=== PATIENT | female | born 1940 | race Caucasian/White ===

== ENCOUNTER 2018-07-04 08:55 | Outpatient (CLI) | payer MEDICARE ==
--- NOTE | 2018-07-04 10:35 | CT ---
CT ABDOMEN WITHOUT CONTRAST: CT PELVIS WITHOUT CONTRAST: HISTORY: Left lower quadrant pain x6 months. Previous colonoscopy, hysterectomy, and cholecystectomy, Previo us back surgery. COMPARISON: 12/25/2016 FINDINGS: ABDOMEN: The visualized lung bases are clear. Mild dilatation of the descending thoracic aorta. At the level of the diaphragmatic jolly, the aorta measures 3.3 x 3.1 cm. There is evidence of previous surgery involving the aorta, with what appears to be an endovascular stent in the aorta and both common iliac arteries. Additional stent is noted in the left common iliac artery. No retroperitoneal mass, lymphadenopathy, or hematoma. Limited evaluation of the solid organs due to lack of intravenous contrast administration. Hypodensi ty in the liver, near the hepatic dome, is too small to characterize. No abnormal masses in the live r. The spleen, pancreas, and bilateral adrenal glands are unremarkable. No gastrohepatic, retrocrural, or periportal lymphadenopathy. A 1.6 cm hypodensity emanating from the posterior mid right kidney with an attenuation coefficient of 15 Hounsfield units. A 1.2 cm hypodense lesion emanating from the lateral upper pole of the right k idney with an attenuation coefficient of 19 Hounsfield units. Both lesions are noted on the previous CT. Bilaterally, no obstructive uropathy. No mesenteric mass, lymphadenopathy, free air, or free fluid. Limited evaluation of the alimentary canal due to lack of oral contrast administration. No evidence of bowel obstruction. The ileocecal junction is normal. Scattered fecal material in a nondistended, nondilated colon. No evidence of obstruction. PELVIS: No mass, lymphadenopathy, free air, or free fluid. Unremarkable urinary bladder. There is stable post surgical change involving the lumbar spine and left SI joint. No perihardware l ucency. Hysterectomy changes are noted. IMPRESSION: No acute abnormality in the abdomen or pelvis. POS: [facility]
== END 2018-07-04 08:56 | disposition home or self-care (01) ==
LOC: CT 08:55
PROVIDERS: ATTEND Internal Medicine Geriatric Medicine
DX: R10.32 Left lower quadrant pain (principal)
CPT/HCPCS: 74176

== ENCOUNTER 2019-11-25 12:19 | Outpatient (CLI) | payer MEDICARE ==
--- NOTE | 2019-11-25 12:39 | RAD ---
EXAM: 3 views of the lumbosacral spine HISTORY: Low back pain and right-sided sciatica COMPARISON: None FINDINGS: 3 views of the lumbosacral spine the patient is status post fusion of L3 and L4 with bilate ral pedicle screws. A disc spacer is seen in the intervening disc space. No perihardware lucency is seen. There is also a disc spacer at L4/5. The vertebral bodies demonstrate normal alignment without subluxation. Posterior facet arthrosis is seen in the lower lumbosacral spine. The patient has left sacroiliac hardware. IMPRESSION: Postsurgical changes of the lumbar spine and left sacroiliac joint as above
== END 2019-11-25 12:20 | disposition home or self-care (01) ==
LOC: BICRAD 12:19
PROVIDERS: ATTEND Family Medicine
DX: M54.41 Lumbago with sciatica, right side (principal); Z98.890 Other specified postprocedural states
CPT/HCPCS: 72100

== ENCOUNTER 2019-12-02 15:03 | Outpatient (CLI) | payer MEDICARE ==
--- NOTE | 2019-12-02 16:07 | CT ---
CT lumbar spine noncontrast HISTORY: Low back pain with left leg radiculopathy FINDINGS: Vertebral body heights are maintained. Images including the retroperitoneum show calcification throughout the arterial structures. Aortoilia c stent graft partially visualized. At the upper abdominal aorta, the diameter is now 4.1 cm x 4.1 cm diameters where it was 3.3 cm x 3.[address] abdomen from 07/04/2018. No retroperitoneal fluid is a pparent. T12-L1: Osteophytosis. Mild disc space narrowing. Central canal and neural foramina are patent. L1-2: Mild disc space narrowing. Central canal and neural foramina are patent. L2-3: Disc space narrowing. Mild posterior disc bulge and circumferential degenerative changes. Mild stenosis of the central canal. Moderate bilateral foraminal stenoses. L3-4: Posterior operative fixation. Interbody fusion material now in place with minimal osseous and g rowth. Minimal degenerative spondylolisthesis at this level. Posterior disc bulge and circumferential degenerative changes. Mild stenosis of the central canal persists. Mild to moderate b ilateral foraminal stenoses. L4-5: Disc space narrowing. Interbody fusion material with mild osseous ingrowth. Posterior disc bulg e and circumferential degenerative changes. Moderate stenosis of the central canal. Mild right and moderate left foraminal stenoses. L5-S1: Osteophytosis of the facets. Central canal and neural foramina are patent. IMPRESSION : Postoperative and multilevel degenerative changes throughout the lumbar spine as detailed above witho ut severe nerve root compression evident. Enlarging fusiform upper abdominal aortic aneurysm, now measuring 4.1 cm greatest diameter.
--- NOTE | 2019-12-02 16:51 | CT ---
CT cervical spine noncontrast: 12/02/2019 HISTORY: 79-year-old female with cervicalgia and cervical radiculopathy FINDINGS: Central lobular emphysematous changes at lung apices. Vertebral body heights are maintained. Multilevel bilateral facet DJD, mostly mild, some mild to moderate. Moderate narrowing of C5-6 disc space. The rest of the disc spaces are maintained. C1-2: Moderate degenerative changes at atlantoodontoid junction. No high-grade central spinal canal s tenosis. No high-grade DJD at atlantoaxial joints. C2-3: No central or neural foraminal stenosis. C3-4: Small bilateral uncinate process osteophytes. No high-grade central spinal canal stenosis. Mild bilateral neural foraminal stenosis due to mild facet osteophytes. C4-5: No high-grade central stenosis. No neural foraminal stenosis. C5-6: Slight retrolisthesis of C5 on C6. At least mild central spinal canal stenosis. Small bilateral uncinate process osteophytes. Mild right neural foraminal stenosis. No left neural foraminal stenosis. C6-7: No high-grade central spinal canal stenosis. Small bilateral uncinate process osteophytes. No n eural foraminal stenosis. C7-T1: No central or neural foraminal stenosis. IMPRESSION: 1.) Mostly mild cervical spondylosis. This includes moderate degenerative disc disease at C5-6, and m ild multilevel facet osteoarthrosis. 2) no high-grade central spinal canal stenosis or high-grade neural foraminal stenosis, at any level. 3) high-grade centrilobular emphysema..
== END 2019-12-02 15:04 | disposition home or self-care (01) ==
LOC: BICCT 15:03
PROVIDERS: ATTEND Family Medicine
DX: M54.42 Lumbago with sciatica, left side (principal); G89.29 Other chronic pain; M47.812 Spondylosis without myelopathy or radiculopathy, cervical region; M50.322 Other cervical disc degeneration at C5-C6 level; J43.2 Centrilobular emphysema; I71.4 Abdominal aortic aneurysm, without rupture; M47.816 Spondylosis without myelopathy or radiculopathy, lumbar region; Z98.890 Other specified postprocedural states
CPT/HCPCS: 72125; 72131; 81001

== ENCOUNTER 2020-09-30 08:50 | Outpatient (CLI) | payer MEDICARE | END 2020-09-30 08:51 | disposition home or self-care (01) | LOC: PET 08:50 | PROVIDERS: ATTEND Internal Medicine Hematology & Oncology | DX: C34.11 Malignant neoplasm of upper lobe, right bronchus or lung (principal); C50.319 Malignant neoplasm of lower-inner quadrant of unspecified female breast; I71.4 Abdominal aortic aneurysm, without rupture; I71.2 Thoracic aortic aneurysm, without rupture | CPT/HCPCS: 78815; A9552 ==

== ENCOUNTER 2020-10-07 08:05 | Day surgery (SDC) | payer MEDICARE ==
[2020-10-06 12:03] VITALS: BMI 20.5
[2020-10-07 08:20] LABS: #Basophils 0.1 thou/uL (0.0-0.2); #Eosinphils 0.3 thou/uL (0.0-0.7); #Lymphocytes 1.5 thou/uL (1.20-3.40); #Monocytes 0.5 thou/uL (0.11-0.59); #Neutrophils 5.3 thou/uL (1.40-6.50); %Eosinophils 3.9 % (0.0-10.0); %Lymphocytes 19.3 % (21.0-51.0); %Neutrophils 69.8 % (42.0-75.0); Hemoglobin 12.4 g/dL (12.0-16.0); Mean Corpuscular HGB CONC 33.3 g/dL (32.0-36.0); Mean Corpuscular Hemoglobin 29.5 pg (27.0-31.0); Mean Corpuscular Volume 88.5 fL (78.0-98.0); Mean Platelet Volume 7.3 fL (7.4-10.4); Platelet Count 223 thou/uL (130-400); RBC Distribution Width 14.5 % (11.5-14.5); Red Blood Cell (RBC) Count 4.19 mill/uL (4.20-5.40); White Blood Cell (WBC) Count 7.5 thou/uL (4.8-10.8)
[2020-10-07 08:37] LABS: INR-International Normal Ratio 1.1; PTT 39.5 sec (22.9-36.1); Prothrombin Time 14.2 sec (12.0-14.7)
[2020-10-07] MEDS ORDERED: Fentanyl 100 MCG/2 ML VIAL ONE (09:01)
[2020-10-07] MEDS ORDERED: Sodium Bicarbonate 2.5 MEQ/5 ML VIAL ONE (09:02)
[2020-10-07] MEDS ORDERED: Benzonatate 100 MG CAP ONE (09:02)
[2020-10-07] MEDS ORDERED: Midazolam HCl 2 mg/2 ml Vial ONE (09:02)
[2020-10-07] MEDS ORDERED: cloNIDine 0.1 MG TAB ONE ×2 (09:02→09:59)
[2020-10-07] MEDS ORDERED: Ondansetron PF 4 MG/2 ML Vial ONE (09:05)
[2020-10-07] MEDS ORDERED: Metoprolol Tartrate 50 MG TAB PO SCH (09:30)
[2020-10-07 09:43] VITALS: TEMP 98.5
[2020-10-07 14:01] VITALS: BP 140/94
== END 2020-10-07 13:40 | disposition home or self-care (01) ==
LOC: CT 08:05
PROVIDERS: ATTEND Internal Medicine Hematology & Oncology
PROC: 0BBC3ZX Excision of Right Upper Lung Lobe, Percutaneous Approach, Diagnostic (ICD-10-PCS; principal; 2020-10-07)
DX: C34.11 Malignant neoplasm of upper lobe, right bronchus or lung (principal); I12.9 Hypertensive chronic kidney disease with stage 1 through stage 4 chronic kidney disease, or unspecified chronic kidney disease; N18.9 Chronic kidney disease, unspecified; E89.0 Postprocedural hypothyroidism; K21.9 Gastro-esophageal reflux disease without esophagitis; Z85.3 Personal history of malignant neoplasm of breast; Z87.891 Personal history of nicotine dependence; Z79.82 Long term (current) use of aspirin; Z88.0 Allergy status to penicillin; Z88.1 Allergy status to other antibiotic agents; Z95.5 Presence of coronary angioplasty implant and graft
CPT/HCPCS: 32408; 71045; 77012; 85025; 85610; 85730; 88305; 88341; 88342; J2250; J2405; J3010

== ENCOUNTER 2021-02-25 18:33 | Inpatient (IN) | payer MEDICARE ==
[2021-02-25] MEDS ORDERED: Sodium Chloride 0.9% (PF) 10 ML VIAL FS PRN (23:30)
[2021-02-25] MEDS ORDERED: Pantoprazole 40 MG VIAL IVP SCH (23:30)
[2021-02-25] MEDS ORDERED: hydrALAZINE 20 MG/ML VIAL SLOW IVP SCH (23:45)
[2021-02-26] MEDS ORDERED: Ondansetron ODT 4 MG TAB PO PRN (00:07)
[2021-02-26] MEDS ORDERED: Acetaminophen 650 MG Suppository PR PRN (00:07)
[2021-02-26] MEDS ORDERED: Ondansetron PF 4 MG/2 ML Vial IVP PRN (00:07)
[2021-02-26 00:09] VITALS: BMI 17.4
[2021-02-26 01:13] LABS: Hemoglobin 8.8 g/dL (12.0-16.0)
[2021-02-26] MEDS: hydrALAZINE 20 MG/ML VIAL SLOW IVP PRN (04:41)
[2021-02-26 04:54] LABS: #Basophils 0.1 thou/uL (0.0-0.2); #Eosinphils 0.3 thou/uL (0.0-0.7); #Lymphocytes 1.8 thou/uL (1.20-3.40); #Monocytes 0.8 thou/uL (0.11-0.59); #Neutrophils 8.8 thou/uL (1.40-6.50); %Basophils 0.5 % (0.0-1.0); %Eosinophils 2.2 % (0.0-10.0); %Lymphocytes 15.5 % (21.0-51.0); %Neutrophils 74.8 % (42.0-75.0); Hemoglobin 8.9 g/dL (12.0-16.0); Mean Corpuscular HGB CONC 33.4 g/dL (32.0-36.0); Mean Corpuscular Hemoglobin 29.6 pg (27.0-31.0); Mean Corpuscular Volume 88.7 fL (78.0-98.0); Mean Platelet Volume 7.5 fL (7.4-10.4); Platelet Count 258 thou/uL (130-400); RBC Distribution Width 17.3 % (11.5-14.5); Red Blood Cell (RBC) Count 3.02 mill/uL (4.20-5.40); White Blood Cell (WBC) Count 11.7 thou/uL (4.8-10.8)
[2021-02-26 05:14] LABS: Anion Gap 18 mmol/L (10-20); BUN (Urea Nitrogen) 22 mg/dL (9.8-20.1); Calc. Creatinine Clearance 23 mL/min (70-130); Calcium 8.9 mg/dL (7.8-10.44); Carbon Dioxide 18 mmol/L (23-31); Chloride 100 mmol/L (98-107); Glucose 85 mg/dL (83-110); Potassium 3.7 mmol/L (3.5-5.1); Sodium 132 mmol/L (136-145)
[2021-02-26] MEDS: Pantoprazole 40 MG VIAL IVP SCH ×2 (08:48→21:43)
[2021-02-26] MEDS: Acetaminophen 325 MG TAB PO PRN (08:55)
[2021-02-26] MEDS ORDERED: FLU VACC QS2021-22(65YR UP)/PF 240 MCG/0.7 ML SYRINGE IM ONE (09:00)
[2021-02-26] MEDS ORDERED: Amlodipine 5 MG TAB PO SCH (11:00)
[2021-02-26 16:49] LABS: SARS-CoV-2 PCR by NAA Not Detected (NotDetected)
[2021-02-26] MEDS ORDERED: Polyethylene Glycol 3350 17 GM Packet PO SCH (17:00)
[2021-02-26] MEDS: Nicotine 14 MG PATCH TOP SCH (21:43)
[2021-02-27] MEDS: hydrALAZINE 20 MG/ML VIAL SLOW IVP PRN (00:54)
[2021-02-27] MEDS: Acetaminophen 325 MG TAB PO PRN ×2 (00:54→21:25)
[2021-02-27] MEDS ORDERED: Labetalol HCl 100 MG/20 ML VIAL SLOW IVP PRN (02:32)
[2021-02-27 04:43] LABS: Hemoglobin 10.2 g/dL (12.0-16.0); Mean Corpuscular HGB CONC 33.4 g/dL (32.0-36.0); Mean Corpuscular Hemoglobin 29.7 pg (27.0-31.0); Mean Corpuscular Volume 88.9 fL (78.0-98.0); Mean Platelet Volume 7.3 fL (7.4-10.4); Platelet Count 296 thou/uL (130-400); RBC Distribution Width 17.6 % (11.5-14.5); Red Blood Cell (RBC) Count 3.44 mill/uL (4.20-5.40); White Blood Cell (WBC) Count 10.2 thou/uL (4.8-10.8)
[2021-02-27] MEDS: Levothyroxine Sodium 125 MCG TAB PO SCH (06:26)
[2021-02-27] MEDS: Amlodipine 5 MG TAB PO SCH (09:26)
[2021-02-27] MEDS: Pantoprazole 40 MG VIAL IVP SCH ×2 (09:26→21:25)
[2021-02-27] MEDS: Polyethylene Glycol 3350 17 GM Packet PO SCH (09:26)
[2021-02-27] MEDS ORDERED: Metoprolol Tartrate 5 MG/5 ML VIAL IVP SCH (15:15)
[2021-02-27] MEDS: Nicotine 14 MG PATCH TOP SCH (21:25)
[2021-02-28 04:57] LABS: Hemoglobin 8.8 g/dL (12.0-16.0); Mean Corpuscular HGB CONC 32.3 g/dL (32.0-36.0); Mean Corpuscular Volume 89.8 fL (78.0-98.0); Mean Platelet Volume 7.5 fL (7.4-10.4); Platelet Count 261 thou/uL (130-400); RBC Distribution Width 17.5 % (11.5-14.5); Red Blood Cell (RBC) Count 3.05 mill/uL (4.20-5.40); White Blood Cell (WBC) Count 8.9 thou/uL (4.8-10.8)
[2021-02-28] MEDS: Levothyroxine Sodium 125 MCG TAB PO SCH (05:50)
[2021-02-28] MEDS ORDERED: Dextrose 5 %-0.45 % NaCl 1,000 ML IV SCH (07:15)
[2021-02-28] MEDS: Pantoprazole 40 MG VIAL IVP SCH ×2 (08:11→20:30)
[2021-02-28] MEDS: Dronedarone HCl 400 MG TAB PO SCH ×2 (08:13→17:57)
[2021-02-28] MEDS: Amlodipine 5 MG TAB PO SCH (08:14)
[2021-02-28] MEDS: Polyethylene Glycol 3350 17 GM Packet PO SCH (08:16)
[2021-02-28 12:47] LABS: Anion Gap 15 mmol/L (10-20); BUN (Urea Nitrogen) 19 mg/dL (9.8-20.1); Calc. Creatinine Clearance 21 mL/min (70-130); Calcium 8.3 mg/dL (7.8-10.44); Carbon Dioxide 21 mmol/L (23-31); Chloride 100 mmol/L (98-107); Glucose 97 mg/dL (83-110); Potassium 3.8 mmol/L (3.5-5.1); Sodium 132 mmol/L (136-145)
[2021-02-28] MEDS: Nicotine 14 MG PATCH TOP SCH (20:21)
[2021-03-01 04:57] LABS: Hemoglobin 9.1 g/dL (12.0-16.0); Mean Corpuscular HGB CONC 34.5 g/dL (32.0-36.0); Mean Corpuscular Hemoglobin 30.6 pg (27.0-31.0); Mean Corpuscular Volume 88.8 fL (78.0-98.0); Mean Platelet Volume 7.2 fL (7.4-10.4); Platelet Count 266 thou/uL (130-400); RBC Distribution Width 17.2 % (11.5-14.5); Red Blood Cell (RBC) Count 2.96 mill/uL (4.20-5.40); White Blood Cell (WBC) Count 8.7 thou/uL (4.8-10.8)
[2021-03-01 05:21] LABS: Anion Gap 19 mmol/L (10-20); BUN (Urea Nitrogen) 17 mg/dL (9.8-20.1); Calc. Creatinine Clearance 21 mL/min (70-130); Calcium 8.4 mg/dL (7.8-10.44); Carbon Dioxide 18 mmol/L (23-31); Chloride 102 mmol/L (98-107); Glucose 97 mg/dL (83-110); Potassium 3.7 mmol/L (3.5-5.1); Sodium 135 mmol/L (136-145)
[2021-03-01] MEDS: Levothyroxine Sodium 125 MCG TAB PO SCH (06:21)
[2021-03-01] MEDS: Pantoprazole 40 MG VIAL IVP SCH ×2 (09:06→19:44)
[2021-03-01] MEDS: Dronedarone HCl 400 MG TAB PO SCH ×2 (09:06→17:20)
[2021-03-01] MEDS: Amlodipine 5 MG TAB PO SCH (09:07)
[2021-03-01] MEDS: Polyethylene Glycol 3350 17 GM Packet PO SCH (09:07)
[2021-03-01] MEDS: Nicotine 14 MG PATCH TOP SCH (19:44)
[2021-03-02 04:57] LABS: Hemoglobin 8.8 g/dL (12.0-16.0); Mean Corpuscular HGB CONC 32.6 g/dL (32.0-36.0); Mean Corpuscular Hemoglobin 29.3 pg (27.0-31.0); Mean Corpuscular Volume 89.9 fL (78.0-98.0); Mean Platelet Volume 7.2 fL (7.4-10.4); Platelet Count 282 thou/uL (130-400); RBC Distribution Width 17.1 % (11.5-14.5); Red Blood Cell (RBC) Count 2.98 mill/uL (4.20-5.40); White Blood Cell (WBC) Count 9.2 thou/uL (4.8-10.8)
[2021-03-02] MEDS: Levothyroxine Sodium 125 MCG TAB PO SCH (06:01)
[2021-03-02] MEDS ORDERED: Hydrocerin (Eucerin) Cream 120 gm Jar TOP PRN (07:31)
[2021-03-02] MEDS ORDERED: Sodium Chloride 0.65% Nasal 44 ML BOT EA NARE PRN (07:31)
[2021-03-02] MEDS ORDERED: Benzonatate 100 MG CAP PO PRN (07:31)
[2021-03-02] MEDS ORDERED: Calcium Carbonate 500 MG ChewTAB PO PRN (07:31)
[2021-03-02] MEDS ORDERED: HYDROcodone/Acetaminophen 5/325 mg Tablet PO PRN (07:31)
[2021-03-02] MEDS ORDERED: Senokot S 8.6-50 MG TAB PO PRN (07:31)
[2021-03-02] MEDS ORDERED: Artificial Tear Sol 15 ML BOT EA EYE PRN (07:31)
[2021-03-02] MEDS ORDERED: Loperamide HCl 2 MG CAP PO PRN (07:31)
[2021-03-02] MEDS ORDERED: Zolpidem Tartrate 5 MG TAB PO PRN (07:31)
[2021-03-02] MEDS ORDERED: Loratadine 10 MG TAB PO PRN (07:31)
[2021-03-02] MEDS ORDERED: Bisacodyl 5 MG TAB PO PRN (07:31)
[2021-03-02] MEDS ORDERED: Cepastat Lozenges 1 LOZ PO PRN (07:31)
[2021-03-02] MEDS ORDERED: guaiFENesin/Codeine 200 mg/20 mg 10 ml Cup PO PRN (07:32)
[2021-03-02] MEDS: Pantoprazole 40 MG VIAL IVP SCH ×2 (08:24→21:16)
[2021-03-02] MEDS: Amlodipine 5 MG TAB PO SCH (08:25)
[2021-03-02] MEDS: Dronedarone HCl 400 MG TAB PO SCH ×2 (08:25→16:03)
[2021-03-02] MEDS ORDERED: Magnevist 469MG/ML 20 ML VIAL ONE (10:41)
[2021-03-02] MEDS: Polyethylene Glycol 3350 17 GM Packet PO SCH (11:30)
[2021-03-02] MEDS ORDERED: ALPRAZolam 0.25 MG TAB PO PRN (16:07)
[2021-03-02] MEDS: Nicotine 14 MG PATCH TOP SCH (21:16)
[2021-03-03 05:34] LABS: Anion Gap 15 mmol/L (10-20); BUN (Urea Nitrogen) 18 mg/dL (9.8-20.1); Calc. Creatinine Clearance 20 mL/min (70-130); Calcium 8.2 mg/dL (7.8-10.44); Carbon Dioxide 18 mmol/L (23-31); Chloride 105 mmol/L (98-107); Glucose 93 mg/dL (83-110); Potassium 3.5 mmol/L (3.5-5.1); Sodium 134 mmol/L (136-145)
[2021-03-03 06:14] LABS: #Basophils 0.1 thou/uL (0.0-0.2); #Eosinphils 0.6 thou/uL (0.0-0.7); #Lymphocytes 1.5 thou/uL (1.20-3.40); #Monocytes 0.9 thou/uL (0.11-0.59); #Neutrophils 6.5 thou/uL (1.40-6.50); %Basophils 0.7 % (0.0-1.0); %Eosinophils 6.6 % (0.0-10.0); %Lymphocytes 15.9 % (21.0-51.0); %Monocytes 9.3 % (0.0-10.0); %Neutrophils 67.6 % (42.0-75.0); Hemoglobin 8.4 g/dL (12.0-16.0); Mean Corpuscular HGB CONC 32.6 g/dL (32.0-36.0); Mean Corpuscular Hemoglobin 29.1 pg (27.0-31.0); Mean Corpuscular Volume 89.3 fL (78.0-98.0); Mean Platelet Volume 7.1 fL (7.4-10.4); Platelet Count 281 thou/uL (130-400); White Blood Cell (WBC) Count 9.7 thou/uL (4.8-10.8)
[2021-03-03 07:48] LABS: ALT (SGPT) 7 U/L (8-55); AST (SGOT) 19 U/L (5-34); Albumin 3.6 g/dL (3.4-4.8); Alkaline Phosphatase 70 U/L (40-110); Bilirubin, Direct 0.3 mg/dL (0.1-0.3); Bilirubin, Total 0.7 mg/dL (0.2-1.2); Protein, Total 6.2 g/dL (5.8-8.1)
[2021-03-03] MEDS: Amlodipine 5 MG TAB PO SCH (08:32)
[2021-03-03] MEDS: Dronedarone HCl 400 MG TAB PO SCH (08:32)
[2021-03-03] MEDS: Polyethylene Glycol 3350 17 GM Packet PO SCH (08:32)
[2021-03-03] MEDS: Levothyroxine Sodium 125 MCG TAB PO SCH (08:32)
[2021-03-03 11:45] VITALS: BP 134/67; TEMP 98.5
== END 2021-03-03 13:14 | disposition hospice, home (50) | DRG 180 ==
LOC: 2NO 22:25
PROVIDERS: ADMIT Family Medicine; ATTEND Internal Medicine
PROC: 30233N1 Transfusion of Nonautologous Red Blood Cells into Peripheral Vein, Percutaneous Approach (ICD-10-PCS; principal; 2021-02-25)
DX: C34.11 Malignant neoplasm of upper lobe, right bronchus or lung (principal); J18.9 Pneumonia, unspecified organism; E44.0 Moderate protein-calorie malnutrition; C77.1 Secondary and unspecified malignant neoplasm of intrathoracic lymph nodes; R04.2 Hemoptysis; C79.31 Secondary malignant neoplasm of brain; Z68.1 Body mass index [BMI] 19.9 or less, adult; Z66 Do not resuscitate; Z51.5 Encounter for palliative care; Z20.822 Contact with and (suspected) exposure to COVID-19; I12.9 Hypertensive chronic kidney disease with stage 1 through stage 4 chronic kidney disease, or unspecified chronic kidney disease; E78.00 Pure hypercholesterolemia, unspecified; N18.30 Chronic kidney disease, stage 3 unspecified; K59.09 Other constipation; E78.5 Hyperlipidemia, unspecified; J44.9 Chronic obstructive pulmonary disease, unspecified; F41.9 Anxiety disorder, unspecified; F32.A Depression, unspecified; K27.9 Peptic ulcer, site unspecified, unspecified as acute or chronic, without hemorrhage or perforation; I48.0 Paroxysmal atrial fibrillation; F17.210 Nicotine dependence, cigarettes, uncomplicated; D63.0 Anemia in neoplastic disease; Z88.0 Allergy status to penicillin; Z88.1 Allergy status to other antibiotic agents; Z79.890 Hormone replacement therapy; Z90.49 Acquired absence of other specified parts of digestive tract; Z98.890 Other specified postprocedural states; Z85.3 Personal history of malignant neoplasm of breast
CPT/HCPCS: 36415; 36430; 70553; 71045; 71250; 71260; 74177; 74230; 80048; 80053; 80076; 83880; 84484; 85014; 85018; 85025; 85027; 86850; 86900; 86901; 93005; 93306; A9579; C9113; J0360; J1956; J7042; P9016; Q0162; U0003; U0005